=== PATIENT | male | born 1975 | race Caucasian/White ===

== ENCOUNTER 2017-01-05 15:00 | Observation (INO) | payer OTHER ==
[~2017-01-05] VITALS: Ht 182.9 cm; Wt 143.0 kg
--- NOTE | ~2017-01-05 | CON ---
PATIENT'S NAME: IVETTE [facility] AGE: 41 Y [address] ROOM: [place] [address] LOCATION: GPCU ADMIT DATE: 01/05/2017 Consultation DISCHARGE DATE: FAMILY PHYSICIAN: PHYSICIAN, UNKNOWN ATTENDING PHYSICIAN: KATELYN AGUILERA DATE OF CONSULTATION: 01/05/2017 CARDIOLOGY CONSULTATION REQUESTING PROVIDER: Katelyn Aguilera MD CHIEF COMPLAINT/REASON FOR CONSULTATION: Chest pain. HISTORY OF PRESENTING ILLNESS: The patient is a very pleasant, 41-year-old male, who has a history of coronary artery disease status post four-vessel CABG in November of 2015. He has SVG to PDA and OM, ramus intermedius, and a WALLS to LAD. He has had an admission with chest pain in April of 2016, where he was ruled out for IA and a stress test was done with small-sized mild reversible perfusion defect in the apex and medical therapy was recommended at that time. Overall patient reports for the past few weeks, he has not been feeling very well. Today when he was at work, he started having severe chest pain, 8/10 radiating to the left arm and similar to the episode when he required CABG. It was resolved with two sublingual nitroglycerin. He has sinus rhythm with RBBB on ECG, and he had two sets of cardiac enzymes that were negative. He also has history of morbid obesity, hyperlipidemia, and obstructive sleep apnea. He is a recovering alcoholic. He also has depression, diabetes, and hyperlipidemia. During interview, he reports he has 3/10 chest pain and so he will be started on heparin and nitroglycerin drip. He also has associated shortness of breath, dyspnea on exertion, and lightheadedness along with the chest pain. He does not have any fever, chills, cough, sputum production, changes in neurological function, strength sensation or speech. He does not have any other acute complaints. PAST MEDICAL HISTORY: 1. CAD. 2. History of tobacco use. 3. Diabetes. PATIENT'S NAME: IVETTE [facility] AGE: 41 Y [address] ROOM: [place] [address] LOCATION: GPCU ADMIT DATE: 01/05/2017 Consultation DISCHARGE DATE: FAMILY PHYSICIAN: PHYSICIAN, UNKNOWN ATTENDING PHYSICIAN: KATELYN AGUILERA 4. Hypertension. 5. Dyslipidemia. 6. History of non-STEMI. 7. Morbid obesity. 8. Obstructive sleep apnea. 9. Anxiety. REVIEW OF SYSTEMS: A 10-point review of systems were discussed with the patient. Pertinent positives and negatives mentioned in the History of Presenting Illness. SOCIAL HISTORY: The patient started working two weeks ago. He does not have any illicit drug abuse or alcohol abuse. The patient quit drinking in 2008. He also has a sedentary lifestyle. The patient currently does not smoke, but chews tobacco. FAMILY HISTORY: There is positive history of premature coronary artery disease. The patient still chews tobacco. PAST SURGICAL HISTORY: 1. CABG in November of 2015. 2. History of colonoscopy and ankle surgery at age 15. PHYSICAL EXAMINATION: VITAL SIGNS: Blood pressure 134/80, pulse is in the 70s, respirations 18, and O2 sats is greater than 90% on room air. BMI 42. Height is 72 inches, and his weight is 316 pounds. CONSTITUTIONAL: The patient is awake, alert, not in any apparent distress. He is morbidly obese. HEENT: Sclerae white bilaterally. Head; atraumatic. Mucous membranes moist. NECK: Supple. RESPIRATORY: Nonlabored. Clear to auscultation bilaterally. No wheezing or crackles. CARDIAC: Heart is S1 and S2. Regular rate and rhythm. No murmurs, gallops, or rubs. SKIN: Warm and dry. EXTREMITIES: No significant lower extremity edema. NEUROLOGIC: Able to move all extremities against gravity. PSYCHIATRIC: Oriented to time, place, and person. No distress. Answers all questions appropriately. HOME MEDICATIONS: 1. He is on aspirin 81 daily. 2. Ativan 2 mg daily. PATIENT'S NAME: IVETTE [facility] AGE: 41 Y [address] ROOM: [place] [address] [facility] ADMIT DATE: 01/05/2017 Consultation DISCHARGE DATE: FAMILY PHYSICIAN: PHYSICIAN, UNKNOWN ATTENDING PHYSICIAN: KATELYN AGUILERA 3. Lipitor 40 daily. 4. Latuda 125 in the morning. 5. Lisinopril 5 at bedtime. 6. Metformin 500 b.i.d. 7. Nitroglycerin 0.4 sublingual p.r.n. chest pain. 8. Pristiq 100 mg daily. LABORATORY DATA AND IMAGING STUDIES: WBC 9.4, H and H are 15.2 and 42.8, and platelets are 246,000. Glucose 136, BUN 16, and creatinine 1.2. AST 38, ALT 43, alkaline phosphatase is 130, and total bilirubin is 0.8. Sodium 138, potassium 4.1. Troponin 0.02, CK-MB 1.7, and CPK 140. Chest x-ray, mild left basilar atelectasis versus artifact. This was done at the outside hospital. No acute findings. Cardiomediastinal silhouette was within normal limits. EKG, sinus rhythm, RBBB. IMPRESSION AND PLAN: 1. Unstable angina with positive stress test in the left anterior descending territory that was done in April in a patient post coronary artery bypass grafting with four-vessel bypass in November of 2015. 2. Hypertension. 3. Hyperlipidemia. 4. Morbid obesity. 5. Obstructive sleep apnea. Plan: At this time, patient is having recurrent episodes of chest discomfort. His chest pain has associated symptoms and is concerning for acute coronary syndrome. He also had chest pain relieved with nitroglycerin. We will start nitroglycerin and heparin drip given that he did have an abnormal chest pain and is having recurrent episodes of chest discomfort similar to bypass and concerning for acute coronary syndrome. At this time, we will proceed with left heart catheterization and coronary artery bypass angiography to evaluate for any significant obstructive coronary artery disease and treat accordingly. Continue guideline directed medical therapy. He will be on aspirin and heparin drip. He continue statin for hyperlipidemia. His LDL goal is less than 70. We will check his laboratories. He is on lisinopril. At this time, we will add Ranexa 500 b.i.d. for anti-anginal effect and low-dose metoprolol as well. We will get an echocardiogram to assess his left ventricular systolic function, serial cardiac enzymes, and EKG with chest pain. ARTI WONG MD AT/modl PATIENT'S NAME: [facility]TE [facility] AGE: 41 Y [address] ROOM: [place] [address] [facility] ADMIT DATE: 01/05/2017 Consultation DISCHARGE DATE: FAMILY PHYSICIAN: PHYSICIAN, MIQUEL ATTENDING PHYSICIAN: KATELYN AGUILERA /[id number] d: 01/05/172207 t: 01/08/17 1802, CONSULTATION REPORT
--- NOTE | ~2017-01-05 | DS ---
PATIENT'S NAME: IVETTE BARRIOS [facility] AGE: 41 Y [address] ROOM: [place] [address] LOCATION: GPCU ADMIT DATE: 01/05/2017 Discharge Summary DISCHARGE DATE: 01/07/2017 FAMILY PHYSICIAN: Fiona Salazar MD ATTENDING PHYSICIAN: Armani Estevez PRINCIPAL DIAGNOSES: 1. Unstable angina. 2. Coronary artery disease, status post coronary artery bypass graft in 2016. 3. Type 2 diabetes. 4. Obstructive sleep apnea. 5. Hypertension. 6. Hyperlipidemia. PRINCIPAL PROCEDURE: Cardiac cath with a balloon angioplasty of the circumflex artery. BRIEF HOSPITAL COURSE: Please refer to the admission H and P for a detailed history of the patient's admission. The patient admitted for ACS rule out and noting that he has significant coronary artery disease including recent CABG in 2016. The patient treated for unstable angina and was evaluated by Cardiology and had a cardiac cath done with a balloon angioplasty of the circumflex artery. The patient since the procedure was done had been symptom- free and ambulating well without any complaints. Vital signs have been stable. The patient at this point is being discharged in stable condition and will follow up with Cardiology in 1-2 weeks. The patient is to continue all his cardiac medications and in addition will use Ranexa as well as Plavix was added to his cardiac medications. The patient is being discharged in stable condition. PHYSICAL EXAMINATION: GENERAL: Today, the patient is alert, awake, and oriented x3. CHEST: Clear to auscultation bilaterally. HEART: S1, S2, regular rate and rhythm. ABDOMEN: Soft, nontender, nondistended. EXTREMITIES: Without edema. MEDICATIONS: Per NOV. DISPOSITION: Home and will follow up with Cardiology in 1-2 weeks. Less than 30 minutes were spent in discharge planning and facilitating. PATIENT'S NAME: IVETTE BARRIOS [facility] AGE: 41 Y [address] ROOM: [place] [id number] LOCATION: GPCU ADMIT DATE: 01/05/2017 Discharge Summary DISCHARGE DATE: 01/07/2017 FAMILY PHYSICIAN: Fiona Salazar MD ATTENDING PHYSICIAN: Armani Estevez BARKOT MD JOHN LARKIN/pearl /[id number] d: 01/08/17 0213 t: 01/25/17 1200, DISCHARGE SUMMARY
--- NOTE | ~2017-01-05 | HP ---
PATIENT'S NAME: IVETTE BARRIOS [facility] AGE: 41 Y [address] ROOM: [address] [address] LOCATION: GPCU ADMIT DATE: 01/05/2017 History & Physical DISCHARGE DATE: FAMILY PHYSICIAN: PHYSICIAN, UNKNOWN ATTENDING PHYSICIAN: KATELYN AGUILERA DATE OF SERVICE: CHIEF COMPLAINT: Right-sided chest pressure. HISTORY OF PRESENT ILLNESS: This is a 41-year-old male with significant cardiac history with a history of coronary artery disease, status post CABG in November of last year, who is transferred from [place] after the patient's case was discussed with Dr. Marquis. History as obtained from the patient. He reports that at around 11:00 a.m. while he was in a break from at work, he developed right-sided upper part of the chest, which he describes as pain to pressure-like and with a severity of 4/10. He also noted associated lightheadedness and dizziness and also felt clammy. Denies associated shortness of breath or presyncope symptoms. Denies associated numbness or tingling. He reported that he waited till 12 o'clock, after which he went home, and when he got home, the pain got worse with a severity of 7/10 with the same dizziness, lightheadedness. He reported that he took a tablet of sublingual nitro, and thereafter, he could not remember anything else until he found himself on the ground, and thereafter, he decided to call 911, and thereafter, he decided to go into the ER at [place]. On arrival to the emergency room, he had a set of cardiac enzyme done, which was negative, and case was discussed with Dr. Marquis, and he asked the patient to be transferred over as the healthcare provider was not comfortable keeping the patient. The patient denied nausea, vomiting. He also reports dyspnea on exertion after walking less than 1 mile and also shortness of breath on exertion as well after walking less than 1 mile. Denies fever, cough. Denies abdominal pain or diarrhea or urinary symptoms. Denies headache, neck pain, or back pain. He has obstructive sleep apnea and has not used his CPAP for the last one year since his CPAP got damaged; however, he has been scheduled to have a repeat sleep study test done on January 20, so that his CPAP can be re-prescribed. REVIEW OF SYSTEMS: The 13 elements of review of systems were asked and as documented in the HPI. The others are negative. PAST MEDICAL HISTORY: Coronary artery disease, status post CABG; essential hypertension; diabetes type 2; dyslipidemia; anxiety. PATIENT'S NAME: IVETTE BARRIOS [facility] AGE: 41 Y [address] ROOM: [place] [address] LOCATION: GPCU ADMIT DATE: 01/05/2017 History & Physical DISCHARGE DATE: FAMILY PHYSICIAN: PHYSICIAN, UNKNOWN ATTENDING PHYSICIAN: KATELYN AGUILERA PAST SURGICAL HISTORY: Includes CABG. SOCIAL HISTORY: Lives with his brother. Chews tobacco one can for 3 days. Denies use of alcohol. Denies use of any illicit drugs. FAMILY HISTORY: Mother is alive, is 67. Father from a heart problem. PHYSICAL EXAMINATION: VITAL SIGNS: Blood pressure 145/87, temperature 97.7, heart rate 60, respiratory rate 16. GENERAL: Reveals a morbidly obese, young male, who is alert, awake, oriented x3, not in any form of respiratory distress or painful distress. Appears comfortable. He is oriented x3. NEUROLOGIC: Cranial nerves 2 through 12 are intact bilaterally. Sensory is intact bilaterally. Power is 5/5 in all the extremities. HEENT: Normocephalic, atraumatic. Pupils equal and reactive to light bilaterally. Pharynx is normal. Mucosa is moist. Ears: No obvious ear discharge or drainage. NECK: Short, obese with a fat fold over the neck from the jaw. CARDIOVASCULAR SYSTEM: Normal S1 and S2. Regular rate and rhythm. CHEST: Clear to auscultation bilaterally. ABDOMEN: Soft, obese, nondistended. No area of tenderness. No palpable organomegaly. Positive bowel sounds. EXTREMITIES: There is no joint swelling or erythema or tenderness. SKIN: He has a scab wound to the left dorsal foot. LABORATORY DATA: Labs from the referral hospital, WBC is 9.5, H and H are 15.2 and 42.8, platelet is 246. Glucose 130, BUN 16, creatinine 1.2, albumin 3.6, AST 38, ALT 43, alkaline phosphatase 130. Sodium 138, potassium 4.1, chloride 102, bicarb 27. Troponin 0.02, CK-MB 1.7, CPK 140. ASSESSMENT AND PLAN: This is a 41-year-old male with significant history of cardiac morbidity. 1. Unstable angina, present on admission. Management per Dr. Parra. We will start the patient on heparin drip as well as nitro drip given his significant coronary artery disease. 2. Essential hypertension, present on admission, stable, controlled. We will continue the patient on his medication. 3. Diabetes type 2 with hyperglycemia, present on admission. We will continue the patient on his medication. PATIENT'S NAME: IVETTE BARRIOS [facility] AGE: 41 Y [address] ROOM: [place] [address] LOCATION: [facility] ADMIT DATE: 01/05/2017 History & Physical DISCHARGE DATE: FAMILY PHYSICIAN: PHYSICIAN, UNKNOWN ATTENDING PHYSICIAN: KATELYN AGUILERA 4. Dyslipidemia, stable, continue the patient on his medication. 5. Acute hypoxic respiratory failure, present on admission, unknown etiology for now. We will get a chest x-ray for further evaluation. I will try and wean him off oxygen. 6. Obstructive sleep apnea. We will continue him on oxygen, and he is scheduled to have a repeat sleep study test as outpatient on January 20. 7. Morbid obesity. We will recommend some diet restriction. 8. Obesity hypoventilation syndrome, present on admission. 9. Line of management was explained to the patient and family, who were present at bedtime, and they had no question at this time. MD BRAD FERMIN/pearl /[id number] D: T: HISTORY & PHYSICAL
--- NOTE | ~2017-01-05 | CATH ---
Cardiac Diagnostic + PCI Report Demographics Patient Name SOPHIE Lee Gender Male Date of 1975 Age 41 year(s) Patient Number [id number] Date of Study 01/06/2017 Visit Number [id number] Room Number G6[address] [place] [id number] Ht 182.88 cm Wt 144.7 kg Referring Zenaida Yi Primary Physician Physician Performing [place] Secondary Physician Physician Carly BALDWIN Diagnostic [facility] Assisting Physician Physician Carly BALDWIN Interventional [facility] Physician Stock Or Delivery Clerk Physician Carly BALDWIN Findings and Conclusions Diagnostic Findings and Conclusion Three grafts patent: WALLS to LAD, SVG to PDA, SVG to Ramus. Occulded SVG to OM 100% aorto ostial. LM distal 30%, ostial Cx 80% focal lesion. Mid LAD 100% occluded. Ramus 80% stenosis, diffuse in mid portion. Mid RCA FACTORY HAND. Diagnostic Recommendations 1. Pt has had recurrent admissions for chest pain and recurrent cp this admission similar to prior to cabg. He is admitted for unstable angina. He is on GDMT and 2 antianginal agents and continues to have exertional chest pain, now at rest. 2. The SVG to OM is completely occluded at its origin and there is 80% focal lesion at the ostium. There is a big size discrepency between LM and Ostial Cx and hence PTCA will be best option if good result achieved without having to stent. Interventional Findings and Conclusion Status post PTCA with NC 3.0/15 @ 14 ricardo for 1 min with 10% residual. Interventional Recommendations 1. Continue medical therapy 2. DAPT for 1 year. Patient will be observed overnight. Patient has been instructed to not lift anything more than 5 pounds for 1 week. Hydration and followup creatinine. Continue current medications. I will plan on seeing the patient back in 2 week(s). Aggressive risk factor management. Recommend aggressive risk factor modification. Aggressive medical therapy for coronary artery disease. Smoking Cessation. Cardiac diet . Optimization of medical therapy as an outpatient. Referral to Cardiac Rehabilitation now and at discharge . Procedure Description The patient was brought to the diagnostic cardiac catheterization-EP laboratory in the fasting, non-sedated state. Informed consent was obtained in the written and verbal form after the risks and benefits were explained. The patient had no further questions and agreed to proceed. The planned puncture-incision site(s) were shaved and prepped with ChloraPrep and draped in the usual sterile manner. Conscious sedation, supplemental oxygen, and pain control medications were delivered by a registered nurse under physician guidance. Surface ECG rhythm, blood pressure measurement, and pulse oximetry were monitored throughout the procedure. Arterial access. The access site was infiltrated with lidocaine. The vessel was entered with the Seldinger technique. A sheath was advanced into the vessel and used for catheter placement. Selective left coronary angiography. A catheter was advanced into the left coronary vessel ostium under Fluoroscopic guidance. Contrast was injected by hand. Images were obtained in multiple projections. Selective right coronary angiography. A catheter was advanced into the right coronary vessel ostium under fluoroscopic guidance. Contrast was injected by hand. Images were obtained in multiple projections. Selective WALLS graft angiography. A catheter was advanced into the left internal mammary graft ostium under fluoroscopic guidance. Contrast was injected by hand. Images were obtained in multiple projections. Selective SVG angiography. A catheter was advanced into the graft proximal anastomosis under fluoroscopic guidance. Contrast was injected by hand. Images were obtained in multiple projections. Left heart catheterization. A catheter was advanced across the aortic valve to the left ventricle under fluoroscopic guidance. Resting hemodynamics were obtained. Angioplasty: A guiding catheter was used to intubate the vessel. A 0.14 wire was used to cross the lesion. A balloon was positioned across the lesion and inflated. Arterial artery hemostasis. Hemostasis was achieved. The patient was transferred to a regular nursing floor via cart accompanied by a nurse. The patient left the laboratory in stable condition. Diagnostic Cath Status: Urgent Interventional Cath Status: Urgent Procedure Procedure Type PCI procedure:Drug Eluting Coronary Stent:, CFX Indications: Chest pain and Right Bundle Branch Block. The procedure was explained in detail to the patient. Risks, complications and alternative treatments were reviewed. Written consent was obtained. Medications Reviewed with Patient prior to Procedure. Angiographic Findings Dominance: Right Cardiac Arteries and Lesion Findings LMCA: Abnormal. Lesion on LMCA: Distal subsection.30% stenosis . LAD: Normal (0% Stenosis). LCx: Abnormal. Lesion on Mid CX: Mid subsection.70% stenosis 12 mm length reduced to 10%. Pre procedure CHU III flow was noted. Post Procedure CHU III flow was present. The guidewire cross was successful.Culprit lesion.Chronic total occlusion. Treatment results:Interventional treatment was successful. Devices used - Emerge Balloon 2.75 x 12. 1 inflation(s) to a max pressure of: 12 ricardo. - Emerge Balloon 2.75 x 12. 1 inflation(s) to a max pressure of: 12 ricardo. - NC Emerge Balloon 3.0 x 15. 1 inflation(s) to a max pressure of: 12 ricardo. - Runthrough NS .014 x 180. Number of passes: 1. RCA: Abnormal.Mid 100% FACTORY HAND Ramus: Abnormal. Lesion on Ramus: Mid subsection.90% stenosis . Cardiac Grafts - There is a Vein graft that originates at the Aorta Right and attaches to the R PDA. - There is a Vein graft that originates at the Aorta Left and attaches to the 3rd Ob Anabel. - There is a Vein graft that originates at the Aorta Left and attaches to the Ramus. - There is a graft that originates at the WALLS and attaches to the Mid LAD. Coronary Tree Procedure Data Procedure Date Date: 01/06/2017Start: 02:07 PMEnd: 03:02 PM Entry Locations - Retrograde Percutaneous access was performed through the Right Femoral artery (Primary location). A 6 Fr sheath was inserted. Hemostasis was successfully obtained using Angio-Seal STS PLUS ([employer]. Russ). Closure Comments: Deployed by Dr. Parra. Procedure Medications Order and Administration + + + + + !Time !Medication !Dosage !Route ! + + + + + !01/06/2017 01:56 !Versed !1 mg ! ! !PM ! ! ! ! + + + + + !01/06/2017 02:03 !Fentanyl !25 mcg ! ! !PM ! ! ! ! + + + + + !01/06/2017 02:20 !Oxygen !2 l/min !NC ! !PM ! ! ! ! + + + + + !01/06/2017 02:32 !Angiomax (Bivalirudin) !110 mg !I.V. bolus ! !PM !(ACC_5) ! ! ! + + + + + 01/06/2017 02:35 !Angiomax (Bivalirudin) !1.75 mg/kg/hr!I.V. drip ! !PM !(ACC_5) ! ! ! + + + + + !01/06/2017 02:50 !Angiomax (Bivalirudin) ! !I.V. drip ! !PM !(ACC_5) ! ! ! + + + + + !01/06/2017 02:52 !Nitroglycerin ! ! ! !PM ! ! ! ! + + + + + !01/06/2017 02:54 !Plavix (ACC_8) !600 mg !P.O. ! !PM ! ! ! ! + + + + + Devices Used - A5 Fr. BS JR 4 Diag. Catheterwas used for:Right coronary angiography. Comments: SVG-PDA, SVG-Ramus, SVG-OM#3, WALLS-LAD. - A5 Fr. BS JL 4 Diag. Catheterwas used for:Left coronary angiography. - A6 Fr. EBU 3.5 Guide Catheterwas used for:Circumflex Intervention. Contrast Material - Isovue [id number] ml Fluoroscopy Time: Diagnostic: 11:12 minutes. Total: 11:12 minutes. Fluoroscopy Dose: Diagnostic: 2286 mGy. Total: 2286 mGy. Estimated Blood Loss: 15 ml. Additional [facility] PCI Information PCI Indication:PCI for high risk Non-STEMI or unstable angina. Medical History Allergies - No known allergies. Risk Factors The patient risk factors include:prior PCI on 09/20/2009; prior CABG on 12/20/2015;obesity, treated hypertension, family history of premature CAD, insulin-treated diabetes mellitus, last creatinine: 0.9 mg/dl, creatinine clearance: 221.07 ml/min, dyslipidemia, Current/Recent(w/in 1 year) tobacco use and prior [place] . Admission Data Admission Date: 01/05/2017 Admission Time: 03:49 PM Admit Source: [facility] Insurance Payors: None. Admission Medications + +------+------+ + + + + !Medication !Dosage!Times !Last !Last !Administered !Comments ! ! ! !Per !Delivery !Delivery ! ! ! ! ! !Day !Date !Time ! ! ! + +------+------+ + + + + !MACY ! ! ! ! !Yes ! ! !Inhibitor ! ! ! ! ! ! ! !(any) ! ! ! ! ! ! ! + +------+------+ + + + + !Statin (any)! ! ! ! !Yes ! ! + +------+------+ + + + + !Beta Daisha! ! ! ! !Yes ! ! !(any) ! ! ! ! ! ! ! + +------+------+ + + + + !Aspirin ! ! ! ! !Yes ! ! !(any) ! ! ! ! ! ! ! + +------+------+ + + + + Clinical Evaluation Leading to Procedure - The patient's CAD presentation was assessed as: Unstable angina. - The patient's anginal syndrome during the past two weeks was assessed as: Class III according to the [place] Cardiovascular Society Classification System (CCS). Anti-anginal medications were prescribed during the past two weeks. The medications are: Beta Blockers and Ranolazine. Hemodynamics Condition: Rest O2 Consumption: Estimated: 296.75Heart Rate: 49 bpm Pressures (mmHg) +-----+ + !Site !Pressure ! +-----+ + !AO !118/74 (94) ! +-----+ + !LV !136/8 ,33 ! +-----+ + !LV !123/10 ,35 ! +-----+ + Shunts Oxygen Values O2 Capacity 204 O2 Consumption 296.75 Discharge Data Discharge Date: 01/07/2017 Hospital Status: Inpatient Signatures dtt: CARLY WONG dtd: 01/06/17 1407 Physician Self Edit
--- NOTE | ~2017-01-05 | ECHO ---
Transthoracic Echocardiography Report (TTE) Demographics Patient Name IVETTE BARRIOS Date of Study 01/06/2017 Patient Number [id number] Visit Number [id number] Date of 1975 Room Number G6303 Gender Male Number Age 41 year(s) Referring Zenaida Yi Conical Mixer Natalya Dumont RVT Physician MD Missy Carroll MD Physician Interpreting Lashaun Carroll Web Offset Press Feeder Physician MD Supervising Ordering Lashaun Carroll MD/MLP Physician MD Nurse Stress Herbarium Worker Conclusions Contractility Score Summary Normal Left Ventricular contractility was noted. Summary Limited echo to assess LV systolic function. Technically difficult exam. Definity was administered to better delineate endocardial borders. The estimated left ventricular ejection fraction is 60% Procedure Type of Study TTE procedure:Echo Limited w/ Contrast. Procedure Date Date: 01/06/2017 Start: 07:11 AM Study Location: Inpatient Portable Technical Quality: Fair Indications:Chest pain. Appropriate Use Criteria: 9 Patient Status: Routine HR: 69 bpm BP: 109/59 mmHg Allergies - No known allergies. Contractility Score LV regional wall motion:(0-Non visualized 1-Normal 2-Hypokinesis 3-Akinesis 4-Dyskinesis 5-Aneurysm) Signature dtt: ARTI WONG dtd: 01/06/17 0711 Physician Self Edit
[~2017-01-05 15:00] MED LIST: ARIPIPRAZOLE5 MG PO; ASPIR 8181 MG PO; ASPIRIN (CHILDR81 MG PO; ASPIRIN LO-DOSE81 MG PO; ASPIRIN325 MG PO; ATIVAN 1 MG1 MG PO; ATIVAN2 MG PO; BACTROBAN15 GM/TUBE TOP; BENADRYL25 MG PO; CIPRO500 MG PO; CLEOCIN HCL300 MG PO; CORDARONE,PACE200 MG PO; COREG12.5 MG PO; COREG6.25 MG PO; DESVENLAFAXINE50 M1 PO; DESYREL100 MG PO; GLUCOPHAGE500 MG PO; HYDROXYZINE PAM25 MG PO; K-TAB 10MEQ10 MEQ; K-TAB 10MEQ10 MEQ PO; LASIX40 MG PO; LATUDA120 MG PO; LEXAPRO10 MG PO; LIPITOR80 MG PO; NICODERM (HABIT14 MG TRANS; NITROSTAT 0.40.4 MG SL; NORCO 5-325 MG1 TAB PO; PRINIVIL (ZESTRI5 MG PO; PRISTIQ 50 MG E50 MG PO; PRISTIQ ER100 MG PO; PROBIOTIC1 EAC1 PO; TRESIBA FL100 UNIT/1 SUB-Q; TYLENOL325 MG PO; ULTRAM50 MG PO; ZOFRAN4 M1 PO; ZOFRAN4 MG PO
--- NOTE | 2017-01-05 16:53 | NUR ---
Pt is 41 y/o male admit for chest pain for hospitalist. Pt alert and oriented x3. No allergies. Resides at home with his brother. Pt mother in room currently. hx CA,cabg,htn,hypercholest,sleep apnea-CPAP,neuropathy in feet,DM, anxiety,depression, hx suicidal thoughts. 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 He drove himself home and took nitro x2 with no relief and then passed out. Pt doesn't know for how long. No apparent injury. Plan is for heart cath around 1 PM tmw. Pt is to be NPO after 6 am.
[2017-01-05] MEDS ORDERED: IMDUR30 MG PO (16:54)
[2017-01-05] MEDS ORDERED: ALLERGY MEDICAT25 M1 PO (16:54)
[2017-01-05] MEDS ORDERED: ADVIL200 MG PO (16:55)
[2017-01-05 17:59] LABS: CPK 121 IU/L (35-332)
--- NOTE | 2017-01-05 19:32 | NUR ---
D:Patient recieved into room at 1550. Is alert and oreintated. Dr. Estevez here at 1620, and then Dr. Parra was here. Pateint able to answer questions, parents are here. Patient reports that he had chest pain at work, was on right side of chest. It did go away. He stayed at work till around noon and then went home. He reports that he took 2 Nitro there, and then passed out, came to on own and went to Office and then to ER without seeing anyone at clinic. They sent him here. Has SL in left hand. P:MOnitor for chest pain
[2017-01-05 23:30] LABS: CPK 102 IU/L (35-332)
[2017-01-06 05:05] LABS: BASOPHIL % 0.5 %; EOSINOPHIL # 0.2 K/uL (0.0-0.5); EOSINOPHIL % 2.5 %; HEMATOCRIT 43.4 % (37.0-53.0); IMMATURE GRANULOCYTE % 0.4 %; LYMPHOCYTE # 3.2 K/uL (0.8-4.0); LYMPHOCYTE % 37.6 %; MCH 30.8 pg (27.0-34.0); MCHC 34.6 gm/dL (32.0-36.5); MCV 89.1 fl (83.0-98.0); MONOCYTE # 0.7 K/uL (0.0-1.0); MONOCYTE % 8.1 %; MPV 10.1 fl (9.4-12.4); NEUTROPHIL # (ANC) 4.3 K/uL (1.4-9.0); NEUTROPHIL % 50.9 %; NRBC % 0 /100WBC (0-0.00); PLATELET COUNT 221 K/uL (150-450); RBC 4.87 M/uL (4.00-6.00); RDW-CV 12.9 % (11.9-14.6); WBC 8.5 K/uL (4.0-11.0)
[2017-01-06 05:23] LABS: INR - (THERAPEUTIC) 1.04 (0.92-1.07); PROTIME 10.9 SECONDS (9.8-11.4)
[2017-01-06 05:31] LABS: CPK 91 IU/L (35-332)
[2017-01-06 05:36] LABS: ALBUMIN 3.4 gm/dL (3.5-5.0); ALK PHOS 127 IU/L (33-138); ALT 45 IU/L (12-78); AST 29 IU/L (10-40); BLOOD UREA NITROGEN 16 mg/dL (6-24); CALCIUM 8.5 mg/dL (8.5-10.5); CHLORIDE 107 mMol/L (96-110); CO2 25 mMol/L (22-32); CREATININE 0.9 mg/dL (0.6-1.3); ESTIMATED GFR (MDRD EQUATION) > 60; MAGNESIUM 2.1 mg/dL (1.8-2.6); PHOSPHORUS 4.2 mg/dL (2.5-4.9); SODIUM 139 mMol/L (135-145); TOTAL BILIRUBIN 0.8 mg/dL (0.0-1.5)
--- NOTE | 2017-01-06 07:05 | NUR ---
Significant Event: Patient alert and oriented x3. SBP 90s-120s. On 1-2L O2. All other vital signs stable. Nitro gtt continues at 5mg/hr. No complaints of chest pain since drip was started. Heparin gtt at 1100 units/hr. Next PTTHP at 0900. To be shut off at 1100. All cardiac enzymes have been negative as of yet. Patient had small breakfast per orders. NPO since 0600. Patient prepped. Up with stand-by assist. Complained of dizziness when walked to the bathroom. [place] better once laid down. Noticable sleep apnea. Patient calm and cooperative with all cares. Follow up: Cardiac Cath today.
--- NOTE | 2017-01-06 10:10 | NUR ---
Diabetes center note: 0930 Talked with patient briefly, he is waiting to have Heart Cath done today. Current A1C was 6.3 %, patient reports that he takes metformin at home, but has not been checking his blood sugar due to cost. Will provide a new meter and options for obtaining a Reli On meter to test blood sugars at home. Diabetes Survival Skills Checklist and Diabetes Management booklet provided and ask patient to complete, so that we can assess educational needs during hospital stay.
[2017-01-06 10:21] LABS: CPK 82 IU/L (35-332)
[2017-01-06 13:14] LABS: BILIRUBIN URINE NEGATIVE (NEGATIVE); BLOOD URINE NEGATIVE /UL (NEGATIVE); COLOR URINE YELLOW (YELLOW); GLUCOSE URINE NEGATIVE (NEGATIVE); KETONE URINE NEGATIVE (NEGATIVE); LEUKOCYTES URINE NEGATIVE /UL (NEGATIVE); NITRITE URINE NEGATIVE (NEGATIVE); PROTEIN URINE NEGATIVE (NEGATIVE); TURBIDITY URINE CLEAR (CLEAR); UROBILINOGEN URINE NORMAL (NORMAL)
--- NOTE | 2017-01-06 13:28 | NUR ---
Diabetes Center note: 1245 Patient waiting for heart cath procedure this afternoon. Patient did complete the Diabetes Survival Skills Checklist and we discussed several topics. Education is provided and a copy of the checklist is placed on the front of patient's chart. Patient states he has not been checking blood sugars at home due to expense. Recommended for patient to obtain a Reli On meter at [facility], as cost is much less than name brand meter/strips. Also provided a Free Style Lite meter with 30 strips to assist. Encouraged to test at least 2 times per day, FBS and 2 hours after a meal and record in log book provided. Patient agrees to continue follow up with Dr. Salazar at [facility] for on-going diabetes management. A1C was 6.3 %, mother at bedside asks appropriate questions and is supportive Patient does not have medical alert provided information and is given a yellow card to record all medications that he is currently taking.
--- NOTE | 2017-01-06 13:56 | NUR ---
Introduced self and role of care management to patient. He lives in [place] with his brother. He states that he is able to do all his ADL's independently. He just recently started a new job. He states that his brother and sister do help if needed. I did inquire of he had any medical insurance as we have him listed as self pay. He states he does not. I did ask if he had been given a financial assistance form. He stated that admissions had given him one. I explained how to complete and mail back. He denies any needs at this time. Will continue to follow.
[2017-01-06 17:17] LABS: CPK 84 IU/L (35-332)
--- NOTE | 2017-01-06 17:40 | NUR ---
Significant Event: VSS AND RA. NPO ALL DAY UNTIL HEART CATH; RT)GROIN APPROACH AND ANGIOSEALED; BALLOONED CIRC. ON BEDREST UNTIL 1900. RT)GROIN SITE REMAINS SOFT AND C/D/I. NS FOR A TOTAL OF 500 MLS. NITRO AND HEPARIN GTTS OFF. NO CP. Follow up: CONTINUE PLAN OF CARE; PROBABLE D/C TMRW.
[2017-01-06 22:54] LABS: CPK 95 IU/L (35-332)
[2017-01-07 04:36] LABS: ALBUMIN 3.4 gm/dL (3.5-5.0); ALK PHOS 118 IU/L (33-138); ALT 48 IU/L (12-78); AST 28 IU/L (10-40); BLOOD UREA NITROGEN 15 mg/dL (6-24); CALCIUM 8.7 mg/dL (8.5-10.5); CHLORIDE 108 mMol/L (96-110); CO2 24 mMol/L (22-32); CREATININE 0.8 mg/dL (0.6-1.3); ESTIMATED GFR (MDRD EQUATION) > 60; SODIUM 139 mMol/L (135-145); TOTAL BILIRUBIN 0.7 mg/dL (0.0-1.5)
[2017-01-07 04:44] LABS: CPK 72 IU/L (35-332)
--- NOTE | 2017-01-07 05:19 | NUR ---
Significant Event: Patient alert and oriented x3. Vital signs stable. On RA. Right groin site soft. Dressing C/D/I. CSM WNL. Up after bedrest stand-by assist/independent. No complaints of chest pain. 7 beats V-Tach at 0315. Patient asymptomatic. No changes in heart rate or rhythm since. PIV to left hand saline locked. Patient calm and cooperative with all cares. Slept most of the shift. Follow up: Home today?
--- NOTE | 2017-01-07 10:20 | NUR ---
reviewed student charting and on the floor from [id number] anum [id number]
[2017-01-07 10:34] LABS: CPK 81 IU/L (35-332)
[2017-01-07] MEDS ORDERED: PLAVIX75 MG PO (13:24)
[2017-01-07] MEDS ORDERED: RANEXA ER500 MG PO (13:30)
--- NOTE | 2017-01-07 14:54 | NUR ---
d-dr wood dc i-nurse did teaching on groin/cath/meds all printed info, heart calendar given iv dcd intact no problem, r)groin normal with dressing c/d/i, mg 2.0, pt amb 3 times in halls ok, no c/o pain, appt set up and card given, rx given r-pt and mom have no more questions p-ta took pt out to car per wc
[2017-04-07] MEDS ORDERED: VISTARIL25 M1 PO (13:00)
[2017-04-07] MEDS ORDERED: ATIVAN 1 MG1 MG PO (13:01)
[2017-04-08] MEDS ORDERED: NICORETTE 2 MG2 MG PO (11:13)
== END 2017-01-07 14:55 | disposition disaster alternative care site (69) ==
LOC: GPCU 15:49
PROVIDERS: Internal Medicine Interventional Cardiology; ADMIT Hospitalist
PROC: 027034Z Dilation of Coronary Artery, One Artery with Drug-eluting Intraluminal Device, Percutaneous Approach (ICD-10-PCS; principal; 2017-01-06)
DX: I25.110 Atherosclerotic heart disease of native coronary artery with unstable angina pectoris (principal); I10 Essential (primary) hypertension; E11.9 Type 2 diabetes mellitus without complications; E78.5 Hyperlipidemia, unspecified; F41.9 Anxiety disorder, unspecified; J96.01 Acute respiratory failure with hypoxia; G47.33 Obstructive sleep apnea (adult) (pediatric); Z95.1 Presence of aortocoronary bypass graft; E66.01 Morbid (severe) obesity due to excess calories; Z68.41 Body mass index [BMI] 40.0-44.9, adult; F17.220 Nicotine dependence, chewing tobacco, uncomplicated; Z98.890 Other specified postprocedural states
CPT/HCPCS: C1725; C1760; C1769; C1887; C8924; G0378; J0583; J1644; J2250; J3010; J7030; J7060; Q9957

== ENCOUNTER 2017-01-20 14:36 | Inpatient (IN) | payer OTHER ==
[~2017-01-20] VITALS: Ht 182.9 cm; Wt 143.7 kg
--- NOTE | ~2017-01-20 | ER ---
PATIENT'S NAME: IVETTE BARRIOS [facility] AGE: 41 [address] ROOM: [address] [address] [facility] AD[facility] DATE: 01/20/2017 ER/Outpatient Report DISCHARGE DATE: FAMILY PHYSICIAN: SINCERE SLAUGHTER MD ATTENDING PHYSICIAN: ARTI WONG ADDENDUM: The patient's second set of cardiac enzymes were noted on previous dictation to be normal. This was an error, in that it was another patient's cardiac enzymes. This patient's second set of enzymes came back positive with an elevation of his CK-MB from initially 2.8 up to an elevation of 4.2. His troponin went from normal of less than 0.04 to elevation 0.121. His EKG did not show any acute changes. I did discuss this with Dr. Parra, the postal superintendent; she wanted him admitted for observation. The patient is thus admitted to the PCU telemetry for further evaluation per Dr. Parra. I did discuss this with the patient, he understands. MD COLE MILLER/pearl /[id number] d: 01/21/17 0044 t: 01/22/17 0610, OUTPATIENT REPORT
--- NOTE | ~2017-01-20 | CATH ---
Cardiac Diagnostic + PCI Report Demographics Patient Name SOPHIE Lee Gender Male Date of 1975 Age 41 year(s) Patient Number [id number] Date of Study 01/21/2017 Visit Number [id number] Room Number G63[address] [place] [id number] Ht 182.88 cm Wt 139.5 kg Referring [facility] Primary Physician Physician Performing Efstratiou Secondary Physician Physician Janey Mae Diagnostic Efstratiou Assisting Physician Physician Janey Mae Interventional Efstratiou Physician Buckle Assembler Physician Janey Grace MD Findings and Conclusions Diagnostic Findings and Conclusion Restenosis with haziness at the recently angioplastied Left Main/Circumflex junction Since the patient had NSTEMI will proceed with stenting Diagnostic Recommendations LISA to LM/circ junction. Interventional Findings and Conclusion Successful LISA to LM/Circ. Interventional Recommendations DAPT. Risk factor modification. Procedure Description The patient was brought to the diagnostic cardiac catheterization-EP laboratory in the fasting, non-sedated state. Informed consent was obtained in the written and verbal form after the risks and benefits were explained. The patient had no further questions and agreed to proceed. The planned puncture-incision site(s) were shaved and prepped with ChloraPrep and draped in the usual sterile manner. Conscious sedation, supplemental oxygen, and pain control medications were delivered by a registered nurse under physician guidance. Surface ECG rhythm, blood pressure measurement, and pulse oximetry were monitored throughout the procedure. Arterial access. The access site was infiltrated with lidocaine. The vessel was entered with the Seldinger technique. A sheath was advanced into the vessel and used for catheter placement. Selective left coronary angiography. A catheter was advanced into the left coronary vessel ostium under Fluoroscopic guidance. Contrast was injected by hand. Images were obtained in multiple projections. Selective right coronary angiography. A catheter was advanced into the right coronary vessel ostium under fluoroscopic guidance. Contrast was injected by hand. Images were obtained in multiple projections. Angioplasty and Stent Placement: A guiding catheter was used to intubate the vessel. A 0.14 wire was then used to cross the lesion. A balloon catheter was placed across the lesion and inflated. The balloon catheter was then removed. A Drug Eluting Stent was placed and inflated. Post placement angiograms were performed. Arterial artery hemostasis was achieved. The patient was transferred to a regular nursing floor via cart accompanied by a nurse. The patient left the laboratory in stable condition. Diagnostic Cath Status: Urgent Interventional Cath Status: Urgent Procedure Procedure Type Diagnostic procedure:Angiography:, Coronary Angios PCI procedure:Drug Eluting Coronary Stent:, CFX Indications: Chest pain, elevated cardiac enzymes and Non-ST elevation MO. The procedure was explained in detail to the patient. Risks, complications and alternative treatments were reviewed. Written consent was obtained. Medications Reviewed with Patient prior to Procedure. Angiographic Findings Dominance: Right Cardiac Arteries and Lesion Findings LMCA: Distal left main to circ site of previous PTCA patent but hazy. LCx: Lesion on Prox CX: Ostial.80% stenosis 10 mm length reduced to 0%. Pre procedure CHU II flow was noted. Post Procedure CHU III flow was present. The guidewire cross was successful.The lesion was diagnosed as a low risk lesion.Culprit lesion.Bifurcation lesion. Devices used - Prowater Wire .014 x 180. Number of passes: 1. - NC Emerge Balloon 3.0 x 12. 1 inflation(s) to a max pressure of: 16 ricardo. - Promus Premier 3.0 x 12 Stent. 1 inflation(s) to a max pressure of: 14 ricardo. - NC Emerge Balloon 3.5 x 8. 1 inflation(s) to a max pressure of: 20 ricardo. - NC Emerge Balloon 4.0 x 8. 1 inflation(s) to a max pressure of: 16 ricardo. Cardiac Grafts - There is a Vein graft that originates at the Aorta Right and attaches to the R PDA. - There is a Vein graft that originates at the Aorta Left and attaches to the 3rd Ob Anabel. - There is a Vein graft that originates at the Aorta Left and attaches to the Ramus. - There is a graft that originates at the WALLS and attaches to the Mid LAD. - There is a Vein graft that originates at the Aorta Right and attaches to the R PDA. - There is a Vein graft that originates at the Aorta Left and attaches to the 3rd Ob Anabel. - There is a Vein graft that originates at the Aorta Left and attaches to the Ramus. - There is a graft that originates at the WALLS and attaches to the Mid LAD. Coronary Tree Procedure Data Procedure Date Date: 05/04/2017Start: 09:56 AMEnd: 11:56 AM Entry Locations - Retrograde Percutaneous access was performed through the Right Radial artery (Primary location). A 6 Fr sheath was inserted. Hemostasis was successfully obtained using Mechanical Compression. Closure Comments: 14 ml of air in R. Band by Marquis Grant . Procedure Medications Order and Administration + + + + + !Time !Medication !Dosage !Route ! + + + + + 01/21/2017 09:45 AM!Fentanyl !50 mcg !I.V. ! + + + + 01/21/2017 09:48 AM!Versed !1 mg ! ! + + + + 01/21/2017 09:49 AM!Oxygen !2 l/min !NC ! + + + + + !01/21/2017 09:51 AM!Oxygen !3 l/min !NC ! + + + + + !01/21/2017 10:17 AM!Radial Verapamil !2.5 mg !I.A. ! + + + + + !01/21/2017 10:17 AM!Radial Nitroglycerin !100 mcg !I.A. ! + + + + 01/21/2017 10:22 AM!Heparin (ACC_3) !4000 units!I.V. bolus ! + + + + + 01/21/2017 10:58 AM!Versed !0.5 mg ! ! + + + + + !01/21/2017 11:11 AM!Fentanyl !25 mcg !I.V. ! + + + + + 01/21/2017 11:15 AM!Heparin (ACC_3) !5000 units!I.V. bolus ! + + + + + !01/21/2017 11:22 AM!Integrilin (ACC_7) !20 mg !I.C. ! + + + + + 01/21/2017 11:27 AM!Heparin (ACC_3) !4000 units!I.V. bolus ! + + + + + 01/21/2017 11:49 AM!Brilinta (Ticagrelor) (ACC_20)!180 mg !P.O. ! + + + + + Devices Used - A5 Fr. BS JL 3.5 Diag. Catheterwas used for:Left coronary angiography.Unable to cannulate the vessel. - A5 Fr. BS JL 4 Diag. Catheterwas used for:Left coronary angiography.Unable to cannulate the vessel. - A5 Fr. BS AL1 Diag. Catheterwas used for:Left coronary angiography.Unable to cannulate the vessel. - A5 Fr. BS JL 3.5 Diag. Catheterwas used for:Left coronary angiography.Unable to cannulate the vessel. - A6 Fr. XBLAD 3.5 Guide Catheterwas used for:Left coronary angiography. Contrast Material - Isovue [id number] ml Fluoroscopy Time: Diagnostic: 40:06 minutes. Total: 40:06 minutes. Fluoroscopy Dose: Diagnostic: 2883 mGy. Total: 2883 mGy. Estimated Blood Loss: 15 ml. Medical History Allergies - No known allergies. Risk Factors The patient risk factors include:prior PCI on 01/06/2017;obesity, treated hypercholesterolemia, treated hypertension, family history of premature CAD, orally-treated diabetes mellitus, last creatinine: 1 mg/dl, creatinine clearance: 191.81 ml/min, dyslipidemia, former tobacco use, prior heart failure and prior MO . Admission Data Admission Date: 01/21/2017 Admission Time: 11:45 AM Insurance Payors: None. Admission Medications + +------+------+ + + + + !Medication !Dosage!Times !Last !Last !Administered !Comments ! ! ! !Per !Delivery !Delivery ! ! ! ! ! !Day !Date !Time ! ! ! + +------+------+ + + + + !Aspirin ! ! ! ! ! ! ! !(any) ! ! ! ! ! ! ! + +------+------+ + + + + !Statin (any)! ! ! ! ! ! ! + +------+------+ + + + + !Beta Daisha! ! ! ! ! ! ! !(any) ! ! ! ! ! ! ! + +------+------+ + + + + !Clopidogrel ! ! ! ! ! ! ! + +------+------+ + + + + !MACY ! ! ! ! ! ! ! !Inhibitor ! ! ! ! ! ! ! !(any) ! ! ! ! ! ! ! + +------+------+ + + + + Clinical Evaluation Leading to Procedure - The patient's CAD presentation was assessed as: Non-STEMI.The symptom onset was first noted on 01/20/2017 06:00 PM(time was estimated). - Anti-anginal medications were prescribed during the past two weeks. The medications are: Beta Blockers and Long Acting Nitrates. Snapshots Hemodynamics Condition: Rest O2 Consumption: Estimated: 309.98Heart Rate: 68 bpm Pressures (mmHg) +-----+ + !Site !Pressure ! +-----+ + !AO !112/78 (93) ! +-----+ + Shunts Oxygen Values O2 Capacity 202.64 O2 Consumption 309.98 Discharge Data Discharge Date: 01/23/2017 Hospital Status: Inpatient Signatures dtt: Malina Dickerson dtd: 01/21/17 0956 Physician Self Edit
--- NOTE | ~2017-01-20 | CON ---
PATIENT'S NAME: IVETTE BARRIOS [facility] AGE: 41 Y [address] ROOM: [address] [place], [place] [address] LOCATION: GPCU ADMIT DATE: 01/20/2017 Consultation DISCHARGE DATE: FAMILY PHYSICIAN: SINCERE SLAUGHTER MD ATTENDING PHYSICIAN: ARTI WONG CHIEF COMPLAINT: Chest pain. HISTORY OF PRESENT ILLNESS: The patient is very well known to Cardiology. He was last seen on 01/05/2017 for evidence of unstable angina. The patient has history of coronary artery disease, status post four-vessel CABG in November of 2015. He has had SVG to PDA, OM, ramus, and WALLS to LAD. He has had numerous admissions with chest discomfort after his CABG, and he did have a positive stress test with evidence of mild reversible defect in the anterior wall in April of 2016, for which he has been managed medically. He has a history of sinus rhythm with right bundle branch block. He also has a history of morbid obesity, hyperlipidemia, obstructive sleep apnea. He is a recovering alcoholic. He has a history of depression, diabetes, hyperlipidemia, as well as history of noncompliance. The patient reports he had chest pain this morning at 9:00 a.m., and basically, he continued to have it persistent, and he went to his primary care doctor's office, Dr. Slaughter; he started having diaphoresis, and the patient was immediately transferred to the emergency room for further workup. In the ER, the patient had chest pain about 3 to 4 on pain scale. It continued to persist. ECG without any ST deviations suggestive of ischemia or injury pattern, and first set of enzymes was negative, however, the second set was slightly more elevated than the initial set. During the interview, the patient reports he has chest pain at 1 on pain scale on nitro drip. Overall, he is doing much better, and symptoms are improving significantly. Of note, he reports that he did not get any Plavix and Ranexa upon discharge, and he reports he was trying to get that medication; however, he was unable to reach our office. We will investigate into whether he was given a prescription of Plavix upon discharge the last time. He did have PTCA of ostial circumflex last visit because his SVG to OM was completely occluded. His WALLS was patent. SVG to PDA and ramus were patent, so that is the reason why PTCA of the ostial circ was performed last time. There was about a focal 80% stenosis with excellent result with PTCA. Due to big discrepancy between the left main and ostial circumflex to avoid compromising left main, I did not stent at that time. PATIENT'S NAME: IVETTE BARRIOS [facility] AGE: 41 Y [address] ROOM: [address] [address] LOCATION: GPCU ADMIT DATE: 01/20/2017 Consultation DISCHARGE DATE: FAMILY PHYSICIAN: SINCERE SLAUGHTER MD ATTENDING PHYSICIAN: ARTI WONG The patient does not have any fever, chills, nausea, vomiting, diarrhea, constipation. No rash. No significant shortness of breath, PND, orthopnea, lightheadedness, or palpitations. No stroke-like symptoms. REVIEW OF SYSTEMS: A 10-point review of systems discussed with the patient. Pertinent positives and negatives mentioned in the history of presenting illness. PAST MEDICAL HISTORY: 1. CAD, status post CABG. 2. History of tobacco abuse. 3. Diabetes. 4. Hypertension. 5. Dyslipidemia. 6. History of non-STEMI. 7. Morbid obesity. 8. Obstructive sleep apnea. 9. Anxiety. SOCIAL HISTORY: The patient quit drinking in 2008. No illicit drug abuse or alcohol abuse. He chews tobacco. Does not smoke cigarettes. He has a sedentary lifestyle. FAMILY HISTORY: Positive for premature coronary artery disease. PAST SURGICAL HISTORY: CABG in November of 2015, history of colonoscopy and ankle surgery when he was young. PHYSICAL EXAMINATION: VITAL SIGNS: Blood pressure is 130/80, heart rate in the 60s, respirations 18, O2 sats greater than 90% on room air. BMI 42. CONSTITUTIONAL: The patient is awake, alert, not in any apparent distress. He is morbidly obese. EYES: Sclerae white. NECK: Supple. No JVD. RESPIRATIONS: Clear to auscultation bilaterally. No wheezing or crackles. HEART: S1, S2. Regular rate and rhythm. No murmurs, gallops, rubs. SKIN: Warm and dry. No lower extremity edema. NEURO: Grossly intact. Able to move all extremities against gravity. PSYCH: Oriented to time, place, and person. No distress. Answers questions appropriately. HOME MEDICATIONS: PATIENT'S NAME: IVETTE BARRIOS [facility] AGE: 41 Y [address] ROOM: [address] [place], [place] [address] LOCATION: GPCU ADMIT DATE: 01/20/2017 Consultation DISCHARGE DATE: FAMILY PHYSICIAN: SINCERE SLAUGHTER MD ATTENDING PHYSICIAN: ARTI OWNG We are obtaining his home medications at this time. We are contacting the Pharmacy. The patient does not have a list. LABORATORY DATA: Sodium 139, potassium 4, chloride 107, CO2 of 22, BUN 17, creatinine 1.1, glucose 103. AST 28, ALT 46. GFR greater than 60. Magnesium 1.6. LDL was 117 on January 07. Troponin initial set 0.40, next one was 0.12, and the third set was 0.25. CK-MB 2.8, 4.2, and 5.9. CPK 119, 126, and 125. ProBNP 35. WBC 12.4, H and H are 16 and 45, and platelets are 299. IMAGING DATA: Chest x-ray, stable nonacute chest. EKG, sinus rhythm with RBBB, nonspecific ST changes in the lateral leads, unchanged from previous EKG. Echocardiogram, LV systolic function is grossly normal, 60%, no regional wall motion, abnormalities, that was done in the last visit. IMPRESSION AND PLAN: 1. Chest discomfort post recent PTCA of ostial circumflex and the patient with known coronary artery disease, status post four-vessel CABG in 2016. SVG to OM is completely occluded, but the WALLS to LAD, SVG to PDA and ramus were patent. Ostial circ only PTCA due to size discrepancy between the left main and the ostial circ and inability due to angulation to land stent in the ostial circumflex and a good result with PTCA. 2. Hypertension. 3. Hyperlipidemia. 4. History of noncompliance. 5. As far as his chest pain, this could be anginal in nature. He has not been taking his Plavix as well as Ranexa. We will reinitiate all his medications. Get a Lexiscan stress test given that the enzymes are mildly elevated, and ensure there is no significant evidence of ischemia, and we will then decide about further plan. MD MAHENDRA RICHARDSON/pearl /[id number] d: 01/21/17 0246 t: 01/21/17 1748, CONSULTATION REPORT
--- NOTE | ~2017-01-20 | DS ---
PATIENT'S NAME: IVETTE BARRIOS [facility] AGE: 41 Y [address] ROOM: [address] [place], [place] [address] LOCATION: GPCU ADMIT DATE: 01/21/2017 Discharge Summary DISCHARGE DATE: 01/23/2017 FAMILY PHYSICIAN: Fiona Salazar MD ATTENDING PHYSICIAN: Carly Wilks PRIMARY DISCHARGE DIAGNOSIS: Non-ST elevated myocardial infarction. SECONDARY DIAGNOSES: 1. Diabetes mellitus. 2. Hyperlipidemia. 3. Coronary artery disease. 4. Hypertension. 5. Hypomagnesemia, replaced. PROCEDURES: Selective coronary angiography and percutaneous intervention with a drug-eluting stent placement to the left main and circumflex junction. HOSPITAL COURSE: This is a 41-year-old male admitted with complaints of chest pain. Please see history and physical by Dr. Carly Wilks for full details of admission. Initial plan upon admission was to proceed with a stress test to fully evaluate myocardial perfusion imaging. On 01/21/2017, noted he had elevated cardiac enzymes and the plan was changed to proceed with a heart catheterization. He underwent a selective coronary angiography and percutaneous intervention with a drug-eluting stent placed to the left main and circumflex junction through the right radial artery. He was then transferred to the Progressive Care Unit post procedure for continued monitoring of his vital signs, EKG, and procedure site. On 01/22/2017, the cardiac enzymes continue to trend downward and he was pain-free. On 01/23/2017, his cardiac enzymes continued to return to baseline and he was found to be in stable condition to be discharged to home. DIAGNOSTICS: Cardiac enzyme trend during his hospitalization showed an admission value of CPK of 119, CK-MB of 2.8, and troponin I of less than 0.04. His cardiac enzymes peaked with a CPK of 190, CK-MB of 14.7, and troponin I of 5.56, and upon discharge, his cardiac enzymes showed a CPK of 117, CK-MB of 3.9, and troponin I of 1.33. He had a magnesium level of 1.6 on admission and it was subsequently 2.3 at discharge. His renal function remained unchanged during hospitalization with BUN, creatinine, and GFR all within normal limits. Lipid evaluation showed a total cholesterol of 179, triglycerides 178, HDL of 25, and LDL of 119. The patient had a chest x-ray on 01/30/2017, which showed a stable nonacute chest. DISCHARGE ORDERS: The patient is discharged to home with a cardiac diet of low fat, low salt, and low cholesterol. He does have a 5-pound lifting PATIENT'S NAME: IVETTE BARRIOS [facility] AGE: 41 Y [address] ROOM: [place] [address] LOCATION: GPCU ADMIT DATE: 01/21/2017 Discharge Summary DISCHARGE DATE: 01/23/2017 FAMILY PHYSICIAN: Fiona Salazar MD ATTENDING PHYSICIAN: Carly Wilks restriction to his to his right arm for 5 days. He is to follow up with Dr. Salazar in 1 week with a CBC, BMP, and magnesium level and then to follow up with Dr. Wilks in 2 weeks. The patient is counseled heavily on medication compliance necessity. DISCHARGE MEDICATIONS: 1. Aspirin 81 mg p.o. daily. 2. Lipitor 80 mg p.o. daily. 3. Coreg 12.5 mg p.o. twice daily. 4. Pristiq 100 mg p.o. daily. 5. Lisinopril 5 mg p.o. daily at bedtime. 6. Ranexa 500 mg p.o. twice daily. 7. Latuda 80 mg p.o. daily. 8. Glucophage 500 mg p.o. twice daily with meals. 9. Brilinta 90 mg p.o. twice daily. 10. Nitroglycerin 0.4 mg sublingual as needed for chest pain. 11. Imdur 30 mg p.o. daily. 12. Benadryl 50 mg p.o. daily as needed for allergies. 13. Magnesium oxide 400 mg p.o. daily. DISPOSITION: The patient is discharged to home in stable condition. He is given teaching related to his post catheterization restrictions. He is also given education on his new medications and prescriptions as well as followup appointments. BERNICE FULLER APRN FOR MD INDER RICHARDSON/pearl /[id number] d: 02/03/17 0430 t: 02/03/17 1130, DISCHARGE SUMMARY
--- NOTE | ~2017-01-20 | ER ---
PATIENT'S NAME: IVETTE BARRIOS [facility] AGE: 41 Y [address] ROOM: [place] [address] LOCATION: GPCU ADMIT DATE: 01/20/2017 ER/Outpatient Report DISCHARGE DATE: FAMILY PHYSICIAN: SINCERE SLAUGHTER MD ATTENDING PHYSICIAN: ARTI WONG Admission date and time are documented on the medical record. I saw the patient at 1446 hours. CHIEF COMPLAINT: Chest pain. HISTORY OF PRESENT ILLNESS: The patient is a 41-year-old male who presents to the emergency room with midanterior chest pain, nonradiating. He has accompanying weakness, generalized diaphoresis, and shortness of breath with some nausea. The patient is known to have qxr-gzcdjed-lqnmcxjum diabetes mellitus, smoking history, congestive heart failure, hypertension, and known coronary artery disease. He has had a 4-vessel coronary bypass graft about a year ago. He has had cardiac catheterizations with PTCA and stenting. He had a REED FIXER done on the 15 of January. He presents with a history of chest pain since 0700 hours this morning. He is also a little bit lightheaded and dizzy. No fall or trauma. No recent colds, coughs, flus, fever, chills, or sweats. No syncope or near syncope. No headache, eyes, ears, nose, throat, neck, or spine pain. No abdominal pain, diarrhea, or urinary symptoms. No joint or muscle swelling, redness, or pain. No skin eruptions or rash. Does have a history of cxs-jpehgxh-kbycdrxro diabetes mellitus, but no other endocrine problems. No neuro changes or psych issues. HOME MEDICATIONS: See attached medication list. ALLERGIES: NONE. SOCIAL HISTORY: Nonsmoker, nondrinker, does use nicotine gum 3 pieces a day with the past history of smoking. SIGNIFICANT PAST MEDICAL HISTORY: Atherosclerotic ischemic heart disease with coronary artery disease, remote tobacco abuse, uix-voxtqak-diuyahyul diabetes mellitus, type 2, dyslipidemia, congestive heart failure, essential tremor, hypertension, exogenous obesity, obstructive sleep apnea, and anxiety. PATIENT'S NAME: IVETTE BARRIOS [facility] AGE: 41 Y [address] ROOM: [place] [address] LOCATION: GPCU ADMIT DATE: 01/20/2017 ER/Outpatient Report DISCHARGE DATE: FAMILY PHYSICIAN: SINCERE SLAUGHTER MD ATTENDING PHYSICIAN: ARTI WONG OPERATIONS: Cardiac catheterization with PTCA and stenting and 4-vessel coronary bypass graft. REVIEW OF SYSTEMS: All systems reviewed by me are negative with the exception of those discussed in the history of present illness. PHYSICAL EXAMINATION: VITAL SIGNS: Temperature 97.8, tympanic, pulse 76, regular, respirations 16, blood pressure 165/91, and O2 sat on room air is 96%. Sarath Coma Scale was 15. HEAD: Normocephalic. EYES, EARS, NOSE, THROAT: Clear. NECK: Negative. SPINE: Negative. LUNGS: Clear. Good airflow. No rales, rhonchi, or wheezes. HEART: Regular. Pulses are palpable. The patient has left anterior chest pain to palpation. ABDOMEN: Obese, soft, nondistended, nontender. Good bowel tones. No organomegaly or abnormal mass palpable. EXTREMITIES: Without peripheral edema, cyanosis, or deformity. NEUROVASCULAR: Intact. SKIN: Clear. No skin eruptions or rash. LABORATORY DATA: CMS was normal except for an elevated glucose 103, elevated alk phos 169, magnesium was 1.6, and CPK was 119. Bjhsv-vf-krat cardiac enzymes were normal. White count was 12,400, 61 segs, 29 lymphs, 7 monos, 2 eos, hemoglobin is 16 with hematocrit 45.0, and platelet count is 299,000. PTT was 27, pro-time is 10.7, INR 1.02. EKG showed sinus rhythm, right bundle branch block, and no other abnormalities. Chest x-ray showed no acute infiltrate or changes. We will review x-ray with the radiologist. EMERGENCY DEPARTMENT COURSE: I did give the patient 2 mg of morphine. I did discuss the patient with Dr. Parra, principal scientist. Dr. Parra just cath him several days ago, did REED FIXER on an area that was open, but she thought it should not need to be ballooned, saw no other lesions or anything that need stenting. So, overall essentially it looked pretty normal. The patient had 2 sets of cardiac enzymes, both were normal, Dr. Parra thought that he could go home, and just follow up with her in the next day or 2 or next week. IMPRESSION: 1. Chest pain, etiology uncertain. PATIENT'S NAME: IVETTE BARRIOS [facility] AGE: 41 Y [address] ROOM: [place] [address] [facility] AD[facility] DATE: 01/20/2017 ER/Outpatient Report DISCHARGE DATE: FAMILY PHYSICIAN: SINCERE SLAUGHTER MD ATTENDING PHYSICIAN: ARTI WONG 2. Known atherosclerotic ischemic heart disease with coronary artery disease, status post cardiac catheterization with percutaneous transluminal coronary angioplasty and stenting and a 4-vessel coronary bypass graft. 3. Pug-lmdfwln-nwfiieoxz diabetes mellitus, type 2. 4. Dyslipidemia. 5. Hypertension. 6. Exogenous obesity. 7. Anxiety. 8. Remote tobacco abuse, currently, using nicotine gum. PLAN: The patient dismissed home. Observation. Activity as tolerated. Continue present home medications and care. Follow up with Dr. Parra in the next day or 2 or next week. Discussion ensued with the patient my findings and recommendations, he understands. MD COLE MILLER/modl /[id number] d: 01/21/17 0033 t: 01/21/17 0618, OUTPATIENT REPORT
[~2017-01-20 14:36] MED LIST changes: +ADVIL200 MG PO; +ALLERGY MEDICAT25 M1 PO; +IMDUR30 MG PO; +PLAVIX75 MG PO; +RANEXA ER500 MG PO
[2017-01-20 15:03] LABS: BASOPHIL % 0.2 %; EOSINOPHIL # 0.3 K/uL (0.0-0.5); EOSINOPHIL % 2.2 %; IMMATURE GRANULOCYTE # 0.1 K/uL (0.0-0.3); IMMATURE GRANULOCYTE % 0.4 %; LYMPHOCYTE # 3.6 K/uL (0.8-4.0); LYMPHOCYTE % 29.3 %; MCH 31.1 pg (27.0-34.0); MCHC 35.6 gm/dL (32.0-36.5); MCV 87.4 fl (83.0-98.0); MONOCYTE # 0.9 K/uL (0.0-1.0); MONOCYTE % 7.3 %; MPV 9.9 fl (9.4-12.4); NEUTROPHIL # (ANC) 7.5 K/uL (1.4-9.0); NEUTROPHIL % 60.6 %; NRBC % 0 /100WBC (0-0.00); RBC 5.15 M/uL (4.00-6.00); RDW-CV 12.8 % (11.9-14.6); WBC 12.4 K/uL (4.0-11.0)
[2017-01-20 15:04] LABS: PLATELET COUNT 299 K/uL (150-450)
[2017-01-20 15:12] LABS: INR - (THERAPEUTIC) 1.02 (0.92-1.07); PROTIME 10.7 SECONDS (9.8-11.4)
[2017-01-20 15:14] LABS: PTT 27 SECONDS (25-32)
[2017-01-20 15:26] LABS: ALBUMIN 3.7 gm/dL (3.5-5.0); ALK PHOS 169 IU/L (33-138); ALT 46 IU/L (12-78); AST 28 IU/L (10-40); BLOOD UREA NITROGEN 17 mg/dL (6-24); CALCIUM 8.8 mg/dL (8.5-10.5); CHLORIDE 107 mMol/L (96-110); CO2 22 mMol/L (22-32); CPK 119 IU/L (35-332); CREATININE 1.1 mg/dL (0.6-1.3); ESTIMATED GFR (MDRD EQUATION) > 60; MAGNESIUM 1.6 mg/dL (1.8-2.6); SODIUM 139 mMol/L (135-145); TOTAL BILIRUBIN 0.6 mg/dL (0.0-1.5); TOTAL PROTEIN 7.9 g/dL (6.0-8.4)
[2017-01-20 19:22] LABS: BILIRUBIN URINE NEGATIVE (NEGATIVE); BLOOD URINE NEGATIVE /UL (NEGATIVE); COLOR URINE YELLOW (YELLOW); GLUCOSE URINE NEGATIVE (NEGATIVE); KETONE URINE NEGATIVE (NEGATIVE); LEUKOCYTES URINE NEGATIVE /UL (NEGATIVE); NITRITE URINE NEGATIVE (NEGATIVE); PROTEIN URINE NEGATIVE (NEGATIVE); SPEC GRAVITY URINE 1.015 (1.003-1.035); TURBIDITY URINE CLEAR (CLEAR); UROBILINOGEN URINE NORMAL (NORMAL)
--- NOTE | 2017-01-21 00:23 | NUR ---
THIS AM THE PATIENT BEGAIN TO HAVE CHEST PAIN AROUND 0900. HE WENT TO HIS PRIMARY DOCTOR WHO SENT HIM TO THE ER. DR. BACON IS VERY FAMILIAR WITH THE PATIENT AND SAW HIM IN THE ER. HE WAS GIVEN MORHPINE X 2 FOR PAIN WITH RELIEF. INITIAL ENZYMES WERE NEGATIVE AND HE WAS GOING TO BE DISCHARGED BUT A SECOND SET CAME BACK WITH TROPONIN 0.121. HE WAS THEN PUT ON A NITRO GTT AT 5 MCG/MIN AND ADMITTED OVERNIGHT FOR OBSERVATION. HE ARRIVED ON PCU AT 2000 AND AMBULETED WITH NO DIFFICULTY. NITRO AT MCG/MIN IN 20 GUAGE LEFT HAND. VSS ON RA, AFEBRILE. HAD NO CHEST PAIN OR ANY OTHER PAIN. HE HAS A SIGNIFICANT CARDIAC HISTORY FOR A 41 YEAR OLD MALE: 4 VESSEL CABG, 3 STENTS, ANGIOPLASTY 2 WEEKS AGO WITH JORDI.
--- NOTE | 2017-01-21 04:34 | NUR ---
Significant Event: A/0 X 3. AMBULATES STAND BY ASSIST. TITRATING NITRO FOR CHEST PAIN AND SBP'S 110-130, REMAINS AT 5 MCG/MIN WITH SBP'S MAINTAINING THAT RANGE SINCE 0200. HR WAS IN THE 90'S BUT HAS BEEN IN THE 70'S THE LAST COUPLE OF HOURS. 02 SATS MID 90'S ON RA. CARDIAC ENZYMES HAVE BEEN TRENDING UP. LAST TROPONIN 1.45. HEPARIN AT 1000 UNITS/HR. HAS BEEN NPO SINCE MIDNIGHT FOR STRESS TEST THIS AM. Follow up:
[2017-01-21 04:40] LABS: BASOPHIL % 0.3 %; EOSINOPHIL # 0.3 K/uL (0.0-0.5); EOSINOPHIL % 2.7 %; HEMATOCRIT 42.6 % (37.0-53.0); HEMOGLOBIN 14.9 g/dL (12.0-17.0); IMMATURE GRANULOCYTE # 0.1 K/uL (0.0-0.3); IMMATURE GRANULOCYTE % 0.6 %; LYMPHOCYTE # 4.1 K/uL (0.8-4.0); LYMPHOCYTE % 38.9 %; MCV 88.8 fl (83.0-98.0); MONOCYTE % 9.7 %; NEUTROPHIL % 47.8 %; NRBC % 0 /100WBC (0-0.00); PLATELET COUNT 242 K/uL (150-450); RDW-CV 12.8 % (11.9-14.6); WBC 10.5 K/uL (4.0-11.0)
[2017-01-21 04:57] LABS: ANION GAP 11.9 (10.0-19.0); BLOOD UREA NITROGEN 17 mg/dL (6-24); CALCIUM 8.6 mg/dL (8.5-10.5); CHLORIDE 106 mMol/L (96-110); CO2 26 mMol/L (22-32); ESTIMATED GFR (MDRD EQUATION) > 60; POTASSIUM 3.9 mMol/L (3.7-5.1); SODIUM 140 mMol/L (135-145)
--- NOTE | 2017-01-21 18:51 | NUR ---
Significant Event:VSS AFEBRILE. BP'S 100'S TO 130'S. ON RA IN 90'S. DENIES PAIN. HEART CATH TODAY THROUGH RT WRIST. 1 STENT PLACED IN PROXIMAL CIRCUMFLEX. AC HS ACCU CHECKS. BS 100'S TO 150'S. MAYBE HOME LORRIE. Follow up:
--- NOTE | 2017-01-22 05:21 | NUR ---
Significant Event:VSS.RA.R RADIAL STABLE, CDI. PT DENIES CHEST PAIN. UP SBA TO BATHROOM. CONT TO MONITOR Follow up:POSSIBLE DISMISSAL 01/22
[2017-01-22 07:32] LABS: ALBUMIN 3.1 gm/dL (3.5-5.0); ALK PHOS 128 IU/L (33-138); ALT 48 IU/L (12-78); BLOOD UREA NITROGEN 15 mg/dL (6-24); CALCIUM 8.2 mg/dL (8.5-10.5); CHLORIDE 109 mMol/L (96-110); CO2 23 mMol/L (22-32); CREATININE 0.9 mg/dL (0.6-1.3); ESTIMATED GFR (MDRD EQUATION) > 60; SODIUM 140 mMol/L (135-145); TOTAL BILIRUBIN 0.5 mg/dL (0.0-1.5); TOTAL PROTEIN 6.8 g/dL (6.0-8.4)
[2017-01-22 07:38] LABS: ANION GAP 12.1 (10.0-19.0); AST 43 IU/L (10-40); POTASSIUM 4.1 mMol/L (3.7-5.1)
--- NOTE | 2017-01-22 17:58 | NUR ---
Significant Event:VSS.RA.HAS DENIED ANY CHEST PAIN THIS SHIFT.TROPONIN TRENDING DOWN, AND AWARE. DISCHARGE PLANS WERE CANCELLED DUE TO PT'S MG LEVEL AT 1.6.2GM MAG SULFATE IV ORDERED, 1ST BAG INFUSING AT THIS TIME.PT C/O BEING ANXIOUS. STATED"TAKES ATIVAN AT HOME". NOTIFIED, BUT DID NOT WANT TO ORDER ATIVAN TO PATIENT AT THIS TIME. INDEPENDENT IN THE ROOM. AMBULATED IN [place] SEVERAL TIMES.PARENTS HAVE BEEN AT THE BEDSIDE. Follow up:WILL CONTINUE TO MONITOR PER PLAN OF CARE.
--- NOTE | 2017-01-23 04:31 | NUR ---
Significant Event: VSS.RA. Denies pain. SR. up ad angel. Ambulated several times in the raphael.2g Magnesium given. Follow up:dismissal possible 01/23
[2017-01-23 04:52] LABS: BASOPHIL % 0.2 %; EOSINOPHIL # 0.3 K/uL (0.0-0.5); EOSINOPHIL % 2.6 %; HEMATOCRIT 41.3 % (37.0-53.0); HEMOGLOBIN 13.9 g/dL (12.0-17.0); IMMATURE GRANULOCYTE % 0.4 %; LYMPHOCYTE # 2.9 K/uL (0.8-4.0); LYMPHOCYTE % 28.7 %; MCH 30.2 pg (27.0-34.0); MCHC 33.7 gm/dL (32.0-36.5); MCV 89.6 fl (83.0-98.0); MONOCYTE # 0.8 K/uL (0.0-1.0); MONOCYTE % 8.3 %; NEUTROPHIL % 59.8 %; NRBC % 0 /100WBC (0-0.00); PLATELET COUNT 210 K/uL (150-450); RBC 4.61 M/uL (4.00-6.00); RDW-CV 12.9 % (11.9-14.6); WBC 10.1 K/uL (4.0-11.0)
[2017-01-23 05:09] LABS: ANION GAP 11.9 (10.0-19.0); BLOOD UREA NITROGEN 13 mg/dL (6-24); CALCIUM 8.3 mg/dL (8.5-10.5); CHLORIDE 109 mMol/L (96-110); CO2 24 mMol/L (22-32); CPK 117 IU/L (35-332); CREATININE 0.8 mg/dL (0.6-1.3); ESTIMATED GFR (MDRD EQUATION) > 60; MAGNESIUM 2.3 mg/dL (1.8-2.6); POTASSIUM 3.9 mMol/L (3.7-5.1); SODIUM 141 mMol/L (135-145)
[2017-01-23] MEDS ORDERED: BRILINTA90 MG PO (11:50)
[2017-01-23] MEDS ORDERED: MAG-OX-400(241400 MG PO (11:51)
[2017-04-07] MEDS ORDERED: VISTARIL25 M1 PO (13:00)
[2017-04-07] MEDS ORDERED: ATIVAN 1 MG1 MG PO (13:01)
[2017-04-08] MEDS ORDERED: NICORETTE 2 MG2 MG PO (11:13)
== END 2017-01-23 12:20 | disposition disaster alternative care site (69) | DRG 247 ==
LOC: GMED 14:36 → GPCU 18:54
PROVIDERS: Emergency Medicine; Family Medicine; Internal Medicine Cardiovascular Disease; Internal Medicine Interventional Cardiology; ADMIT Internal Medicine Interventional Cardiology
DX: I21.4 Non-ST elevation (NSTEMI) myocardial infarction (principal); Z68.41 Body mass index [BMI] 40.0-44.9, adult; T82.855A Stenosis of coronary artery stent, initial encounter; I10 Essential (primary) hypertension; I25.10 Atherosclerotic heart disease of native coronary artery without angina pectoris; I25.2 Old myocardial infarction; E78.5 Hyperlipidemia, unspecified; E11.9 Type 2 diabetes mellitus without complications; Z87.891 Personal history of nicotine dependence; Z82.49 Family history of ischemic heart disease and other diseases of the circulatory system; E66.01 Morbid (severe) obesity due to excess calories; F10.21 Alcohol dependence, in remission; G47.33 Obstructive sleep apnea (adult) (pediatric); Z91.19 Patient's noncompliance with other medical treatment and regimen; Z79.82 Long term (current) use of aspirin; Z79.84 Long term (current) use of oral hypoglycemic drugs; Z79.899 Other long term (current) drug therapy; E83.42 Hypomagnesemia
CPT/HCPCS: C1725; C1769; C1874; C1887; C9600; J1327; J1644; J2250; J2270; J3010; J3475; J7030

== ENCOUNTER → 2017-02-05 | Outpatient (CLI) | payer SELFPAY ==
[~2017-02-05] MED LIST changes: +BRILINTA90 MG PO; +MAG-OX-400(241400 MG PO; +NICORETTE 2 MG2 MG PO; +VISTARIL25 M1 PO
[2017-02-05 14:22] LABS: ALBUMIN 3.5 gm/dL (3.5-5.0); ALK PHOS 132 IU/L (33-138); ALT 48 IU/L (12-78); ANION GAP 15.3 (10.0-19.0); AST 23 IU/L (10-40); BLOOD UREA NITROGEN 8 mg/dL (6-24); CALCIUM 8.3 mg/dL (8.5-10.5); CHLORIDE 111 mMol/L (96-110); CO2 20 mMol/L (22-32); CPK 101 IU/L (35-332); CREATININE 0.9 mg/dL (0.6-1.3); ESTIMATED GFR (MDRD EQUATION) > 60; POTASSIUM 4.3 mMol/L (3.7-5.1); SODIUM 142 mMol/L (135-145); TOTAL PROTEIN 7.4 g/dL (6.0-8.4)
[2017-02-05 14:23] LABS: TOTAL BILIRUBIN 0.7 mg/dL (0.0-1.5)
== END | disposition disaster alternative care site (69) ==
LOC: LNHI 13:58
PROVIDERS: Internal Medicine Interventional Cardiology
DX: I25.10 Atherosclerotic heart disease of native coronary artery without angina pectoris (principal); I10 Essential (primary) hypertension; R06.02 Shortness of breath

== ENCOUNTER 2017-04-04 23:18 | Observation (INO) | payer SELFPAY ==
[~2017-04-04] VITALS: Ht 185.4 cm; Wt 140.7 kg
--- NOTE | ~2017-04-04 | DS ---
PATIENT'S NAME: IVETTE BARRIOS [facility] AGE: 41 Y [address] ROOM: [address] [address] LOCATION: GPCU ADMIT DATE: 04/04/2017 Discharge Summary DISCHARGE DATE: 04/06/2017 FAMILY PHYSICIAN: Fiona Salazar MD ATTENDING PHYSICIAN: Johnny Porras V FINAL DIAGNOSES: 1. Chest pain. 2. Known coronary artery disease, status post coronary artery bypass grafting. 3. Diabetes mellitus, type 2, well-controlled. 4. Obstructive sleep apnea. 5. Anxiety and depression. REASON FOR ADMISSION: The patient presented with chest pain. At the time of presentation, the pain did improve with nitroglycerin. It was felt that the patient needed to be admitted and evaluated overnight with Cardiology consult. LABORATORY DATA: Cardiac enzymes on admission, first CK was 115, MB 1.5, and troponin less than 0.04. HOSPITAL COURSE: The patient was admitted to the floor on an observation status. He was given IV heparin and placed on a nitroglycerin drip. He was seen and evaluated by [facility] Cardiology by Dr. Parra. At that time, she felt that based upon his EKGs and laboratory that he did not need any intervention. She did increase his Ranexa and strongly encouraged him to adhere to his medications. We were able to wean off the nitroglycerin and we shut the heparin off. The patient ambulated in the hallway without any difficulty. It was felt that he was stable for discharge on April 06. DISCHARGE INSTRUCTIONS: Follow diabetic cardiac diet. He is to keep his scheduled appointment with Dr. Salazar. He is to keep all appointments regarding initiation of BiPAP and see Dr. Parra in 2 weeks. MEDICATIONS: 1. Nitro 0.4 mg sublingual chest pain. 2. Aspirin 81 mg daily. 3. Lipitor 80 mg at bedtime. 4. Coreg 12.5 mg twice a day. 5. Pristiq 100 mg daily. 6. Imdur 30 mg daily. 7. Prinivil 5 mg at bedtime. 8. Latuda 80 mg daily. 9. Ranexa 1000 mg twice daily. 10. Brilinta 90 mg daily. PATIENT'S NAME: IVETTE BARRIOS [facility] AGE: 41 Y [address] ROOM: [address] [place], [place] [address] LOCATION: GPCU ADMIT DATE: 04/04/2017 Discharge Summary DISCHARGE DATE: 04/06/2017 FAMILY PHYSICIAN: Fiona Salazar MD ATTENDING PHYSICIAN: Johnny Porras V 11. Glucophage 500 mg twice daily. 12. Benadryl 50 mg as needed for allergy symptoms. PROGNOSIS: Overall, prognosis at discharge was good. I did speak with Dr. Salazar, his primary care provider. The patient did voice understanding. HARDEEP VARGAS MD LAW/modl /[id number] d: 04/07/17 0211 t: 04/14/17 1934, DISCHARGE SUMMARY
--- NOTE | ~2017-04-04 | HP ---
PATIENT'S NAME: IVETTE BARRIOS [facility] AGE: 41 Y [address] ROOM: [place] [address] LOCATION: GPCU ADMIT DATE: 04/04/2017 History & Physical DISCHARGE DATE: FAMILY PHYSICIAN: PHYSICIAN, UNKNOWN ATTENDING PHYSICIAN: CECELIA GUIDO V DATE OF SERVICE: CHIEF COMPLAINT: Chest pain. HISTORY OF PRESENT ILLNESS: The patient is a 41-year-old male with past medical history most significant for early onset coronary artery disease, status post CABG approximately 1 year ago, requiring 3 interventions on his grafts approximately 2 to 3 months ago. He presented to the hospital in [place] with complaints of sudden onset substernal chest pain which lasted about 45 minutes. The chest pain improved with nitroglycerin given to him at the other hospital. The episode was consistent with prior episodes of unstable angina/non-STEMI. The patient was communicative with Dr. Marquis, started on nitroglycerin, heparin, and transferred to [facility] by air. At this point, the patient appears comfortable and denies any chest pain. Denies any shortness of breath, nausea, vomiting, diarrhea, or palpitations. REVIEW OF SYSTEMS: All systems have been reviewed and are negative aside from pertinent positives mentioned above. PAST MEDICAL HISTORY: Significant for: 1. Psychiatric disease, depression and anxiety. 2. Coronary artery disease. 3. Four-vessel CABG. 4. Mqs-wenvhbl-drfeusoru diabetes. 5. Obstructive sleep apnea for which the patient was recently worked up and apparently will be started on BiPAP. SOCIAL HISTORY: He denies any smoking, drinking, or illicit drug use. He does endorse using nicotine gum. FAMILY HISTORY: Reviewed and is noncontributory due to known underlying etiology for the patient's presentation. PATIENT'S NAME: IVETTE BARRIOS [facility] AGE: 41 Y [address] ROOM: [place] [address] LOCATION: GPCU ADMIT DATE: 04/04/2017 History & Physical DISCHARGE DATE: FAMILY PHYSICIAN: PHYSICIAN, UNKNOWN ATTENDING PHYSICIAN: CECELIA GUIDO V CURRENT MEDICATIONS: 1. Brilinta. 2. Aspirin. 3. Lisinopril. 4. Metformin. 5. Pristiq. 6. Latuda. 7. Ativan. 8. Coreg. PHYSICAL EXAMINATION: VITAL SIGNS: At this point, his vital signs are: Blood pressure 104/64, heart rate is in the 80s, saturating 98% on 2 L nasal cannula. Afebrile. Respirations 16. GENERAL: Appears morbidly obese, middle-aged male, in no acute distress. NEUROLOGICAL EXAM: Nonfocal. EYE EXAM: Shows pupils are equal and reactive to light. LYMPHATIC EXAM: Shows no cervical lymphadenopathy. ENDOCRINE EXAM: Shows no thyromegaly. LUNGS: Exhibit dry crackles at the bases bilaterally. HEART: Regular with no appreciable murmurs, gallops, or rubs. JVD cannot be assessed and there is no lower extremity edema. GI: Abdomen is soft, nontender. : No costovertebral angle tenderness. VASCULAR EXAM: Shows 2+ pedal pulses. MUSCULOSKELETAL EXAM: Shows no muscle or joint abnormalities. PSYCHIATRIC EXAM: Reveals a slightly blunted affect with preserved mood and cognition. DIAGNOSTIC DATA: Review of the studies from the outside facility is significant for normal cardiac enzymes, and an EKG, which shows preexisting right bundle-branch block with concordant T-wave inversions in leads V1, V2, and V3. ASSESSMENT AND PLAN: 1. This is a 41-year-old male who will be admitted with presumed unstable angina. We will continue the patient on nitroglycerin drip as well as heparin. We will continue his Brilinta and aspirin as well as Coreg. We will trend his cardiac enzymes as well as monitor him on telemetry. We will have [facility] or [facility]iology see him in the morning. 2. Sxz-zmectzh-estrbhbjq diabetes. We will hold off on metformin for now in case a cardiac catheterization is required. 3. Depression and anxiety. We will continue the patient on Pristiq and Latuda. PATIENT'S NAME: IVETTE BARRIOS [facility] AGE: 41 Y [address] ROOM: [address] [address] LOCATION: GPCU ADMIT DATE: 04/04/2017 History & Physical DISCHARGE DATE: FAMILY PHYSICIAN: PHYSICIAN, UNKNOWN ATTENDING PHYSICIAN: CECELIA GUIDO V 4. Obstructive sleep apnea. We do not have the patient's CPAP settings as of now. We will maintain his saturations above 90. Additional management will depend on clinical course. Time dedicated to this patient encounter is 25 minutes. MD MELISA RUIZ/pearl /[id number] D: [id number] T: [id number] HISTORY & PHYSICAL
--- NOTE | ~2017-04-04 | CON ---
PATIENT'S NAME: IVETTE BARRIOS [facility] AGE: 41 Y [address] ROOM: [place] [address] LOCATION: GPCU ADMIT DATE: 04/04/2017 Consultation DISCHARGE DATE: FAMILY PHYSICIAN: PHYSICIAN, UNKNOWN ATTENDING PHYSICIAN: CECELIA GUIDO V DATE OF CONSULTATION: 04/05/2017 REFERRING PHYSICIAN: Rashad Marquis MD REASON FOR CARDIOLOGY CONSULT: Chest pain. HISTORY OF PRESENT ILLNESS: This is a 41-year-old male, familiar to [facility]. He was last seen during a hospitalization in January of 2017 for a non-ST elevated myocardial infarction. During that stay, he received a drug-eluting stent to the left main and circumflex junction. This admission is preceded by him having complaints of sudden-onset chest pain. He presented to the [place] [facility], and then was transferred to [facility] for further evaluation and care. He describes the chest pain is similar to previous episodes. He had relief from his pain with nitroglycerin and as of this consult, he is pain free. He denies any recent changes to his health and prior to his pain, he denies any nausea, vomiting, shortness of breath, dyspnea on exertion, or palpitations. PAST MEDICAL HISTORY: Positive for coronary artery disease with a 4-vessel coronary artery bypass grafting in November of 2015 as well as hypertension, dyslipidemia, previous non- STEMI, diabetes, and as listed in the HPI as well as obstructive sleep apnea, anxiety, morbid obesity. FAMILY HISTORY: Positive history of premature coronary artery disease. PAST SURGICAL HISTORY: As listed in the HPI as well as colonoscopy and ankle surgery at a younger age. SOCIAL HISTORY: The patient has a current history of tobacco use. He uses chewing tobacco and goes through 1 can of chew every 3 days. He has done so for the last 21 years and states he is attempting to quit. No known history of cigarette use. Denies alcohol or illicit drug use. CURRENT MEDICATIONS: PATIENT'S NAME: IVETTE BARRIOS [facility] AGE: 41 Y [address] ROOM: [place] [address] LOCATION: GPCU ADMIT DATE: 04/04/2017 Consultation DISCHARGE DATE: FAMILY PHYSICIAN: PHYSICIAN, UNKNOWN ATTENDING PHYSICIAN: CECELIA GUIDO V 1. Heparin IV per ACS protocol. 2. Nitroglycerin IV as needed for chest pain. 3. Aspirin 81 mg p.o. daily. 4. Brilinta 90 mg p.o. twice daily. 5. Coreg 12.5 mg p.o. twice daily. 6. Imdur 30 mg p.o. daily. 7. Latuda 80 mg p.o. daily. 8. Lipitor 80 mg p.o. daily in the evening. 9. Prinivil 5 mg p.o. daily in the evening. 10. Pristiq 100 mg p.o. daily. 11. Ranexa 500 mg p.o. twice daily. MEDICATION ALLERGIES: No known medication allergies. REVIEW OF SYSTEMS: Pertinent positive review of systems are listed in the HPI. All other review of systems are evaluated and negative. PHYSICAL EXAMINATION: VITAL SIGNS: Temperature 98.5, pulse 71, respirations 16, blood pressure 108/57, O2 saturation 97% on 2 L nasal cannula. The patient weighs 140.7 kg. SKIN: Warm and dry. EYES: Sclerae clear. No xanthelasma. ENT: Oral mucosa is pink and moist. NECK: No jugular venous distention or carotid bruits. CHEST: Respirations are even and unlabored. Lungs are clear to auscultation. HEART: Regular rate and rhythm. Normal S1, S2. No murmurs, rubs, or gallops. ABDOMEN: Soft, nontender. MUSCULOSKELETAL: Gait is normal. EXTREMITIES: Peripheral pulses palpable. No clubbing, cyanosis, or edema. PSYCHIATRIC: Alert and oriented. Mood and affect are appropriate. DIAGNOSTICS: Current cardiac enzymes show a CPK of 115, CK-MB of 1.5, and a troponin I of less than 0.04. IMPRESSION AND PLAN: Per Dr. Carly Wilks: 1. Unstable angina with no evidence of ischemia. His cardiac enzymes are currently negative as well as his EKG showing no acute signs of coronary occlusion. 2. Coronary artery disease with a history of coronary artery bypass grafting x4 vessels as well as recent stenting to the LAD and circumflex junction. 3. Hypertension. PATIENT'S NAME: IVETTE BARRIOS [facility] AGE: 41 Y [address] ROOM: [place] [address] LOCATION: [facility] ADMIT DATE: 04/04/2017 Consultation DISCHARGE DATE: FAMILY PHYSICIAN: PHYSICIAN, UNKNOWN ATTENDING PHYSICIAN: CECELIA GUIDO V 4. Hyperlipidemia. 5. Diabetes mellitus. 6. Obstructive sleep apnea. Once again, this is a 41-year-old male, familiar to [facility]. He is currently showing no signs of ischemia on his EKG or cardiac enzymes. There is no elevation in his cardiac biomarkers and we will continue his dual anti-platelet therapy indefinitely. After his first year post stent, he will need to be changed to Brilinta 60 mg p.o. twice daily. Once again, he is status post a catheterization with a percutaneous intervention to the left main and circumflex junction. His previous bypass grafts were patent during last catheterization. We will continue to trend his cardiac enzymes and optimize medications by increasing Ranexa to 1000 mg p.o. twice daily. If his enzymes continue to be negative, we will discontinue his heparin drip. No need for stress at this time or repeat catheterization. We will continue to monitor, evaluate, and treat as appropriate. Thank you for this consult. Thank you for allowing [facility] to interact in the care of this patient. BERNICE FULLER APRN FOR MD INDER RICHARDSON/pearl /[id number] d: 04/05/17 1754 t: 04/13/17 0803, CONSULTATION REPORT
[~2017-04-04 23:18] MED LIST changes: -NICORETTE 2 MG2 MG PO; -VISTARIL25 M1 PO
--- NOTE | 2017-04-05 03:05 | NUR ---
2335: ADMITTED VIA AIR CARE FROM [place] WITH POSSIBLE PR. CHEST PAIN STARTED AROUND 9PM WHEN HE WAS WALKING DOWN SOME STAIRS. HE TOOK 2 NITRO WITHOUT MUCH RELIEF. HE SILKE C/O FEELING SWEATY AND SOB. HE WENT TO THE ER IN [place] WITH CP AT A 9/10. ENZYMES WERE NEGATIVE. THEY STARTED A NITRO AND HEPARIN GTT AND WAS SENT HERE. AT TIME OF ADMISSION, HE WAS CP FREE AND DENIED SOB. HE WAS ON 10MCG OF NITRO AND 1000 UNITS/HR OF HEPARIN. O2 WAS 4L PER NC. PT IS ABLE TO GET UP AND WALK. NO PAIN WITH ACTIVITY. STEADY GAIT. A&O X3.
[2017-04-05 04:43] LABS: CPK 115 IU/L (35-332)
--- NOTE | 2017-04-05 05:45 | NUR ---
Significant Event: ADMITTED FROM [place] WITH CHEST PAIN. ENZYMES HAVE BEEN NEGATIVE. NO CHEST PAIN SINCE ADMISSION. NITRO IS AT 10MCG AND HEPARIN AT 1200 UNITS/HR. O2 AT 2L PER ACS PROTOCOL. ST ELEVATION NOTED ON MONITOR. DR. GUIDO NOTIFIED AND HE SAID NOT TO WORRY ABOUT IT SINCE HE WASN'T HAVING CHEST PAIN. NPO UNTIL AFTER CARDIO SEES HIM. Follow up:
--- NOTE | 2017-04-05 13:44 | NUR ---
Introduced self and role of care management to patient. He lives in [place] with his brother. He is able to do all his own ADL's. He states his brother helps if he needs him too. He is currently unemployed and does not have any medcial insurance. I did give him a finacial assistance application. He plans on returning home on discharge. He denies any needs at this time. Will continue to follow.
[2017-04-05 13:46] LABS: CPK 91 IU/L (35-332)
--- NOTE | 2017-04-05 19:15 | NUR ---
Significant Event: Alert and oriented X 3. Room air. SBP 90's and 100's. Cardiac diet. SBA to independent in room. Peripheral IV to right wrist and right hand saline locked. Denies any pain. Patient stated that he did have a bowel movement this shift. Walked in the raphael 3 times this shift. Pleasant and cooperative with cares. Follow up:
--- NOTE | 2017-04-06 04:15 | NUR ---
Significant Event: ALL VSS ON RA, AFEBRILE. ALL IV FLUIDS/MEDS D/C'D. HAS HAD NO CHEST PAIN OR ANY OTHER PAIN DURING THE ENTIRE SHIFT. COOPERATIVE. WILL BE DISCHARGED TODAY. Follow up:
--- NOTE | 2017-04-06 13:58 | NUR ---
Significant Event: PT A&x3. VSS, on room air. PT up ad angel in room. Denies pain. IV x2 dc'd. Dismissal instructions given to PT/mom, voiced understanding. Ranexa samples sent home with PT. PT wheeled to front lobby and dismissed to home with mom. Follow up:
[2017-04-07] MEDS ORDERED: VISTARIL25 M1 PO (13:00)
[2017-04-07] MEDS ORDERED: ATIVAN 1 MG1 MG PO (13:01)
[2017-04-08] MEDS ORDERED: NICORETTE 2 MG2 MG PO (11:13)
== END 2017-04-06 13:45 | disposition disaster alternative care site (69) ==
LOC: GPCU 23:18
PROVIDERS: ADMIT Internal Medicine
DX: R07.9 Chest pain, unspecified (principal); I25.10 Atherosclerotic heart disease of native coronary artery without angina pectoris; E11.9 Type 2 diabetes mellitus without complications; G47.33 Obstructive sleep apnea (adult) (pediatric); F41.9 Anxiety disorder, unspecified; F32.9 Major depressive disorder, single episode, unspecified; Z95.1 Presence of aortocoronary bypass graft; E78.5 Hyperlipidemia, unspecified; I25.2 Old myocardial infarction; E66.01 Morbid (severe) obesity due to excess calories; F17.220 Nicotine dependence, chewing tobacco, uncomplicated; Z79.82 Long term (current) use of aspirin; Z79.899 Other long term (current) drug therapy
CPT/HCPCS: G0378; J1644; J7030

== ENCOUNTER → 2017-04-04 | Outpatient (CLI) | payer BC, OTHER | END | disposition disaster alternative care site (69) | LOC: GAMB 22:50 → GAIR 22:50 | DX: I20.9 Angina pectoris, unspecified (principal); I10 Essential (primary) hypertension; E66.9 Obesity, unspecified; E11.9 Type 2 diabetes mellitus without complications; F41.9 Anxiety disorder, unspecified; R07.89 Other chest pain; Z79.82 Long term (current) use of aspirin; Z79.84 Long term (current) use of oral hypoglycemic drugs; Z79.899 Other long term (current) drug therapy; Z95.1 Presence of aortocoronary bypass graft; Z82.49 Family history of ischemic heart disease and other diseases of the circulatory system | CPT/HCPCS: A0422; A0431; A0436 ==

== ENCOUNTER → 2017-05-04 | Outpatient (CLI) | payer SELFPAY ==
[~2017-05-04] MED LIST changes: +NICORETTE 2 MG2 MG PO; +VISTARIL25 M1 PO
--- NOTE | ~2017-05-04 | PUL ---
PATIENT'S NAME: IVETTE BARRIOS [facility] AGE: 41 Y [address] ROOM: [place] [address] LOCATION: [facility] ADMIT DATE: 05/04/2017 Pulmonary DISCHARGE DATE: FAMILY PHYSICIAN: SINCERE SLAUGHTER MD ATTENDING PHYSICIAN: SINCERE SLAUGHTER NAME OF PROCEDURE: Sleep Study PROCEDURE DATE: 05/04/2017 TECH: DORIS Downing TEST #: [facility]# [id number] TECHNICAL PARAMETERS: The patient was studied using International 10/20 measuring system. While the patient was studied, there was continuous monitoring of EEG (8 leads), EOG (2 leads), EKG (3 leads), submental EMG (3 leads), tibial (4 leads), respiratory inductive plethysmography (RIP) for thoracic and abdominal effort, oral and nasal airflow with a thermocouple and pressure transducer, and oximetry. The wireless field technician also performed visual and auditory observations noting things like body position, patient's status, breath sounds, artifact, snoring level and patient comments. Continuous sound was monitored using a 2-way speaker system and video monitoring was performed using an infrared camera. Review of the entire study was performed epoch by epoch utilizing a single epoch and multiple epoch capability sleep system. MEDICAL HISTORY: Patient is a 41-year-old gentleman with a history of obstructive sleep apnea. This study was done to titrate CPAP. SLEEP STAGE SUMMARY: The patient was studied for 457 minutes of which he slept 399 minutes. He fell asleep in 24 minutes and slept for 87% of the night. Sleep architecture revealed a decline in slow wave and REM sleep. RESPIRATORY SUMMARY: Oxygen saturations ranged from 92-95%. CPAP was initiated at 6 cm and titrated to 12 cm with good control of the respiratory events. EKG SUMMARY: Average heart rate 81 beats per minute. No dysrhythmias were noted. LIMB MOVEMENT SUMMARY: No clinically relevant periodic limb movements were noted. SUMMARY: Obstructive sleep apnea responsive to CPAP at 12 cm. PATIENT'S NAME: IVETTE BARRIOS [facility] AGE: 41 Y [address] ROOM: [place] [address] LOCATION: [facility] ADMIT DATE: 05/04/2017 Pulmonary DISCHARGE DATE: FAMILY PHYSICIAN: SINCERE SLAUGHTER MD ATTENDING PHYSICIAN: SINCERE SLAUGHTER PLAN: Patient will receive results from the ordering provider. MD JOEY ARREOLA/ /[id number] dtt: 05/18/17 1010 , Fidel Sanz. dtd: 05/07/17 1029
== END | disposition disaster alternative care site (69) ==
LOC: GSLP 19:37
DX: G47.19 Other hypersomnia (principal); G47.8 Other sleep disorders; G47.33 Obstructive sleep apnea (adult) (pediatric); R06.81 Apnea, not elsewhere classified; R53.83 Other fatigue